=== PATIENT | female | born 1995 | race Caucasian/White ===

== ENCOUNTER 2023-07-27 20:16 | Emergency (ER) | payer BC, MEDICARE, MEDICAID ==
[2023-07-27] MEDS ORDERED: Acetaminophen 500 MG TAB ONE (21:58)
[2023-07-27] MEDS ORDERED: methylPREDNISolone Sod Succ/PF 125 MG/2 ML VIAL ONE (21:58)
[2023-07-27] MEDS ORDERED: Ketorolac Tromethamine 30 MG/ML VIAL ONE (21:58)
[2023-07-27 22:11] LABS: ALT (SGPT) 18 U/L (8-55); AST (SGOT) 15 U/L (5-34); Albumin 4.6 g/dL (3.5-5.0); Alkaline Phosphatase 45 U/L (40-110); Anion Gap 14 mmol/L (10-20); BUN (Urea Nitrogen) 5 mg/dL (7.0-18.7); Bilirubin, Total 0.6 mg/dL (0.2-1.2); Calc. Creatinine Clearance 0 mL/min (70-130); Calcium 9.5 mg/dL (7.8-10.44); Carbon Dioxide 24 mmol/L (22-29); Chloride 107 mmol/L (98-107); Estimated GFR 100; Globulin 2.4 g/dL (2.4-3.5); Glucose 85 mg/dL (70-105); Potassium 4.5 mmol/L (3.5-5.1); Sodium 140 mmol/L (136-145)
[2023-07-27 22:13] LABS: #Eosinphils 0.1 10x3/uL (0.0-0.5); #Monocytes 0.5 10x3/uL (0.0-1.1); #Neutrophils 4.6 10x3/uL (1.5-8.4); %Basophils 0.4 % (0.0-2.0); %Eosinophils 1.5 % (0.0-6.0); %Lymphocytes 22.5 % (18.0-47.0); %Monocytes 6.9 % (0.0-10.0); %Neutrophils 68.4 % (40.0-75.0); Hematocrit 38.2 % (34.9-44.5); Mean Corpuscular Hemoglobin 32.4 pg (27.0-33.0); Mean Corpuscular Volume 95.3 fl (81.6-98.3); Mean Platelet Volume 9.2 fl (7.4-10.4); Platelet Count 233 10x3/uL (150-450); RBC Distribution Width 11.7 % (11.5-14.5); Red Blood Cell (RBC) Count 4.01 10x6/uL (3.90-5.03); White Blood Cell (WBC) Count 6.7 10x3/uL (3.5-10.5)
[2023-07-27] MEDS ORDERED: Magnesium 2 GM/50 ML BAG (IN WATER) ONE (22:27)
[2023-07-27] MEDS ORDERED: Promethazine 25 MG TAB ONE (22:28)
== END 2023-07-27 23:50 | disposition home or self-care (01) ==
LOC: CSHERS 20:16
DX: R51.9 Headache, unspecified (principal)
CPT/HCPCS: 36416; 80053; 85025; 96374; 96375; J1885; J2930; J3475; Q0169

== ENCOUNTER 2023-11-06 08:23 | Day surgery (SDC) | payer MEDICARE, BC | END 2023-11-06 11:50 | disposition home or self-care (01) | LOC: CSHSDC 08:23 | PROVIDERS: ATTEND Psychiatry & Neurology Neurology | DX: G90.1 Familial dysautonomia [Riley-Day] (principal) | CPT/HCPCS: 96365; 96366; P9045 ==

== ENCOUNTER 2023-12-02 12:11 | Day surgery (SDC) | payer MEDICARE, BC ==
[2023-12-02] MEDS ORDERED: Albumin 5% 25 GM (500 mL) BOT IVPB SCH (12:30)
== END 2023-12-02 15:30 | disposition home or self-care (01) ==
LOC: CSHSDC 12:11
PROVIDERS: ATTEND Psychiatry & Neurology Neurology
DX: R57.1 Hypovolemic shock (principal); Z88.1 Allergy status to other antibiotic agents; Z88.8 Allergy status to other drugs, medicaments and biological substances
CPT/HCPCS: 96365; 96366; P9045

== ENCOUNTER 2024-04-22 10:53 | Day surgery (SDC) | payer MEDICARE, BC ==
[2024-04-22] MEDS ORDERED: Albumin 5% 25 GM (500 mL) BOT IVPB SCH (11:30)
== END 2024-04-22 13:00 | disposition home or self-care (01) ==
LOC: CSHSDC 10:53
PROVIDERS: ATTEND Psychiatry & Neurology Neurology
DX: G90.1 Familial dysautonomia [Riley-Day] (principal); R55 Syncope and collapse; G60.9 Hereditary and idiopathic neuropathy, unspecified; Z88.8 Allergy status to other drugs, medicaments and biological substances; Z88.5 Allergy status to narcotic agent; Z91.09 Other allergy status, other than to drugs and biological substances
CPT/HCPCS: 96365; 96366; P9045; J1642

== ENCOUNTER 2024-04-29 08:09 | Day surgery (SDC) | payer MEDICARE, BC ==
[2024-04-29] MEDS ORDERED: Albumin 5% 25 GM (500 mL) BOT IVPB SCH (08:30)
== END 2024-04-29 10:25 | disposition home or self-care (01) ==
LOC: CSHSDC 08:09
PROVIDERS: ATTEND Psychiatry & Neurology Neurology
DX: G90.1 Familial dysautonomia [Riley-Day] (principal); G60.9 Hereditary and idiopathic neuropathy, unspecified; R55 Syncope and collapse
CPT/HCPCS: 96365; 96366; P9045; J1642

== ENCOUNTER 2024-05-09 10:54 | Day surgery (SDC) | payer MEDICARE, BC ==
[2024-05-09] MEDS ORDERED: Albumin 5% 25 GM (500 mL) BOT IVPB SCH (11:30)
== END 2024-05-09 13:15 | disposition home or self-care (01) ==
LOC: CSHSDC 10:54
PROVIDERS: ATTEND Psychiatry & Neurology Neurology
DX: G90.1 Familial dysautonomia [Riley-Day] (principal); G60.9 Hereditary and idiopathic neuropathy, unspecified; R55 Syncope and collapse
CPT/HCPCS: J1642; P9045

== ENCOUNTER 2024-06-10 07:25 | Outpatient (CLI) | payer MEDICARE, BC | END 2024-06-10 07:26 | disposition home or self-care (01) | LOC: CSHULT 07:25 | PROVIDERS: ATTEND Internal Medicine | DX: R79.89 Other specified abnormal findings of blood chemistry (principal) | CPT/HCPCS: 76700 ==

== ENCOUNTER 2025-10-09 01:46 | Emergency (ER) | payer OTHER, BC, MEDICARE ==
[2025-10-09 02:23] LABS: #Basophils Less than 0.03 10x3/uL (0.0-0.2); #Eosinophils 0.16 10x3/uL (0.0-0.5); #Monocytes 1.15 10x3/uL (0.0-1.1); #Neutrophils 7.61 10x3/uL (1.5-8.4); %Basophils 0.2 % (0.0-2.0); %Eosinophils 1.5 % (0.0-6.0); %Lymphocytes 17.5 % (18.0-47.0); %Monocytes 10.6 % (0.0-10.0); %Neutrophils 69.9 % (40.0-75.0); Hematocrit 34.7 % (34.9-44.5); Hemoglobin 11.6 g/dL (12.0-15.5); Mean Corpuscular Hemoglobin 31.5 pg (27.0-33.0); Mean Corpuscular Volume 94.3 fL (81.6-98.3); Platelet Count 248 10x3/uL (150-450); Red Blood Cell (RBC) Count 3.68 10x6/uL (3.90-5.03); White Blood Cell (WBC) Count 10.87 10x3/uL (3.5-10.5)
[2025-10-09 02:44] LABS: ALT (SGPT) 11 U/L (Less than 34); AST (SGOT) 17 U/L (11-34); Albumin 4.8 g/dL (3.1-4.5); Alkaline Phosphatase 58 U/L (40-110); Anion Gap 14 mmol/L (10-20); BUN (Urea Nitrogen) 6 mg/dL (7.0-18.7); Bilirubin, Total 0.4 mg/dL (0.3-1.2); Calc. Creatinine Clearance 0 mL/min (70-130); Calcium 9.4 mg/dL (7.8-10.44); Carbon Dioxide 24 mmol/L (22-29); Chloride 101 mmol/L (98-107); Globulin 3.0 g/dL (2.4-3.5); Glucose 92 mg/dL (70-105); Potassium 2.9 mmol/L (3.5-5.1); Sodium 136 mmol/L (136-145)
[2025-10-09 03:15] LABS: INR-International Normal Ratio 1.0; PTT 31.9 sec (22.0-33.0); Prothrombin Time 10.8 sec (9.5-12.1)
[2025-10-09] MEDS ORDERED: Iopamidol 300 61% 100 ML VIAL FS ONE (10:28)
== END 2025-10-09 08:59 | disposition short-term general hospital (02) ==
LOC: CSHERS 01:46
DX: T81.31XA Disruption of external operation (surgical) wound, not elsewhere classified, initial encounter (principal); L76.32 Postprocedural hematoma of skin and subcutaneous tissue following other procedure
CPT/HCPCS: 36415; 74177; 80053; 83605; 85025; 85610; 85730; 86140; 96374; 96375; 96376; J2272